=== PATIENT | female | born 1995 | race African-American/Black ===

== ENCOUNTER 2018-02-05 10:06 | Emergency (ER) | payer SELFPAY ==
--- NOTE | 2018-02-05 11:28 | RAD ---
LEFT FINGERS THREE VIEWS: History: 22-year-old female with history of trauma to left ring finger with pain after slamming finger in door yesterday. FINDINGS/IMPRESSION: No fracture, dislocation, or other significant acute osseous abnormality. POS: C
== END 2018-02-05 11:26 | disposition home or self-care (01) ==
LOC: ERS 10:06
DX: S60.042A Contusion of left ring finger without damage to nail, initial encounter (principal); F17.210 Nicotine dependence, cigarettes, uncomplicated; W22.8XXA Striking against or struck by other objects, initial encounter